=== PATIENT | male | born 1995 | race Caucasian/White ===

== ENCOUNTER 2018-04-02 22:26 | Emergency (ER) | payer OTHER ==
[2018-04-02 22:36] VITALS: BP 148/89
--- NOTE | 2018-04-02 22:42 | ER Report ---
History and Physical Time Seen By MD: 22:43 Hx. of Stated Complaint: PATIENT STATES THAT HE WAS ON HIS WAY BACK TO [place] WHEN HE STARTED HAVING ABD. PAIN AND HEART BURN THEN EXPERIENCED A "POP" IN HIS ABD. AND THEN STATED "FEELS LIKE THE FEELING OF LOSS OF BLOOD"; THEN PATIENT STATED HE PULLED TO THE SIDE OF THE ROAD AND "BLACKED OUT" FOR A FEW SECONDS AND THEN MADE IT TO THE HOSPITAL; PATIENT STATED THAT HE FEELS BETTER NOW BUT STILL HAS SOME RIGHT SIDED ABD. PAIN HPI/ROS CHIEF COMPLAINT: abdominal pain HISTORY OF PRESENT ILLNESS: This is a 22 year old male. He is on the road for the last 36 hours traveling from [place] to [place]. He has been having abdominal pain for the last 24 hours. This is in the right lower abdomen. He said that it worsened tonight. He felt a "popping" sensation in his abdomen, pulled off to the side of the road and then felt like he blacked out for a few seconds. He drove on and stopped here in [place] to get checked out. He feels a little better now, but still with pain in right lower abdomen. He has had some nausea, but no vomiting. Denies problems with urination. Last bowel movement was Friday morning. Normally has BM every 2-3 days. No diarrhea or constipation. Has normal urination. No flank pain. No dysuria. No history of surgeries other than hernia surgery as a child. No pain in testes/groin. Reviewed Nurses Notes: Yes Constitutional Vital Sign - Last 24 Hours 04/02/18 22:36 Temp 98.4 Pulse 94 Resp 20 B/P (MAP) 148/89 Pulse Ox 94 O2 Delivery Room Air Intake and Output 04/02/18 04/02/18 04/03/18 14:58 22:58 06:58 Intake Total 1000 ml Balance 1000 ml Physical Exam General Appearance: The patient is alert. No acute distress. Eyes: Pupils are equal, round. No pallor, injection or icterus. ENT: Mucous membranes are moist. Neck: Supple and non tender. No lymphadenopathy. Respiratory: Lungs are clear to auscultation. Cardiovascular: Regular rate and rhythm. No murmurs, gallops or rubs. Gastrointestinal: Abdomen is tender in right lower abdomen with guarding, but no rebound. Nondistended. No masses or organomegaly. Normal active bowel sounds. No costovertebral angle tenderness with percussion. Neurological: Alert and oriented x3. Skin: Warm and dry. No rashes. Musculoskeletal: No tenderness in palpation of the back/spine. DIFFERENTIAL DIAGNOSIS: After history and physical exam, differential diagnosis was considered for abdominal pain including but not limited to appendicitis, cholecystitis, gastritis and urinary tract infection. Medical Decision Making Data Points Result Diagram: 04/02/18230104/02/18 230 Laboratory Hematology Test 04/02/18 22:33 04/02/18 23:02 Urine Color Yellow Urine Clarity Cloudy Urine pH 7.0 pH (4.8-9.5) Urine Specific [place] 1.016 Urine Protein Negative mg/dL (NEGATIVE) Urine Glucose (UA) Negative mg/dL (NEGATIVE) Urine Ketones Trace mg/dL (NEGATIVE) Urine Blood Negative (NEGATIVE) Urine Nitrite Negative (NEGATIVE) Urine Bilirubin Negative (NEGATIVE) Urine Urobilinogen 2.0 mg/dL (0.2-1.9) Urine Leukocyte Esterase Negative (NEGATIVE) Urine RBC <1 /HPF (0-2/HPF) Urine WBC 2 /HPF (0-5/HPF) Urine Squamous Epithelial Cells None /LPF (</=FEW) Urine Amorphous Crystals Few /HPF Urine Bacteria Few /HPF (NONE-FEW) Urine Mucus Few /HPF (NONE-FEW) Red Blood Count 5.58 M/uL (4.00-5.60) Mean Corpuscular Volume 91.4 fL (80.0-96.0) Mean Corpuscular Hemoglobin 32.7 pg (26.0-33.0) Mean Corpuscular Hemoglobin Concent 35.7 g/dL (32.0-36.0) Red Cell Distribution Width 13.3 % (11.5-14.5) Mean Platelet Volume 7.9 fL (7.2-11.1) Neutrophils (%) (Auto) 68.0 % (39.4-72.5) Lymphocytes (%) (Auto) 17.7 % (17.6-49.6) Monocytes (%) (Auto) 9.8 % (4.1-12.4) Eosinophils (%) (Auto) 2.8 % (0.4-6.7) Basophils (%) (Auto) 1.7 % (0.3-1.4) Nucleated RBC Relative Count (auto) 0.0 /100WBC Neutrophils # (Auto) 6.9 K/uL (2.0-7.4) Lymphocytes # (Auto) 1.8 K/uL (1.3-3.6) Monocytes # (Auto) 1.0 K/uL (0.3-1.0) Eosinophils # (Auto) 0.3 K/uL (0.0-0.5) Basophils # (Auto) 0.2 K/uL (0.0-0.1) Nucleated RBC Absolute Count (auto) 0.01 K/uL Sodium Level 138 mmol/L (137-145) Potassium Level 3.6 mmol/L (3.5-5.0) Chloride Level 101 mmol/L (98-107) Carbon Dioxide Level 26 mmol/L (22-30) Blood Urea Nitrogen 12 mg/dl (9-21) Creatinine 0.90 mg/dl (0.66-1.25) Glomerular Filtration Rate Calc > 60.0 Random Glucose 107 mg/dl (75-110) Calcium Level 10.4 mg/dl (8.4-10.2) Total Bilirubin 0.8 mg/dl (0.2-1.3) Aspartate Amino Transf (AST/SGOT) 27 U/L (0-35) Alanine Aminotransferase (ALT/SGPT) 34 U/L (0-56) Alkaline Phosphatase 52 U/L (0-126) Total Protein 7.4 g/dl (6.3-8.2) Albumin 4.3 g/dl (3.5-5.0) Amylase Level 78 U/L (0-110) Lipase 84 U/L (23-300) Chemistry Test 04/02/18 22:33 04/02/18 23:02 Urine Color Yellow Urine Clarity Cloudy Urine pH 7.0 pH (4.8-9.5) Urine Specific [place] 1.016 Urine Protein Negative mg/dL (NEGATIVE) Urine Glucose (UA) Negative mg/dL (NEGATIVE) Urine Ketones Trace mg/dL (NEGATIVE) Urine Blood Negative (NEGATIVE) Urine Nitrite Negative (NEGATIVE) Urine Bilirubin Negative (NEGATIVE) Urine Urobilinogen 2.0 mg/dL (0.2-1.9) Urine Leukocyte Esterase Negative (NEGATIVE) Urine RBC <1 /HPF (0-2/HPF) Urine WBC 2 /HPF (0-5/HPF) Urine Squamous Epithelial Cells None /LPF (</=FEW) Urine Amorphous Crystals Few /HPF Urine Bacteria Few /HPF (NONE-FEW) Urine Mucus Few /HPF (NONE-FEW) White Blood Count 10.2 k/uL (4.5-11.0) Red Blood Count 5.58 M/uL (4.00-5.60) Hemoglobin 18.2 g/dL (14.0-18.0) Hematocrit 51.0 % (42.0-52.0) Mean Corpuscular Volume 91.4 fL (80.0-96.0) Mean Corpuscular Hemoglobin 32.7 pg (26.0-33.0) Mean Corpuscular Hemoglobin Concent 35.7 g/dL (32.0-36.0) Red Cell Distribution Width 13.3 % (11.5-14.5) Platelet Count 352 K/uL (150-450) Mean Platelet Volume 7.9 fL (7.2-11.1) Neutrophils (%) (Auto) 68.0 % (39.4-72.5) Lymphocytes (%) (Auto) 17.7 % (17.6-49.6) Monocytes (%) (Auto) 9.8 % (4.1-12.4) Eosinophils (%) (Auto) 2.8 % (0.4-6.7) Basophils (%) (Auto) 1.7 % (0.3-1.4) Nucleated RBC Relative Count (auto) 0.0 /100WBC Neutrophils # (Auto) 6.9 K/uL (2.0-7.4) Lymphocytes # (Auto) 1.8 K/uL (1.3-3.6) Monocytes # (Auto) 1.0 K/uL (0.3-1.0) Eosinophils # (Auto) 0.3 K/uL (0.0-0.5) Basophils # (Auto) 0.2 K/uL (0.0-0.1) Nucleated RBC Absolute Count (auto) 0.01 K/uL Glomerular Filtration Rate Calc > 60.0 Calcium Level 10.4 mg/dl (8.4-10.2) Total Bilirubin 0.8 mg/dl (0.2-1.3) Aspartate Amino Transf (AST/SGOT) 27 U/L (0-35) Alanine Aminotransferase (ALT/SGPT) 34 U/L (0-56) Alkaline Phosphatase 52 U/L (0-126) Total Protein 7.4 g/dl (6.3-8.2) Albumin 4.3 g/dl (3.5-5.0) Amylase Level 78 U/L (0-110) Lipase 84 U/L (23-300) Urinalysis Test 04/02/18 22:33 Urine Color Yellow Urine Clarity Cloudy Urine pH 7.0 pH (4.8-9.5) Urine Specific [place] 1.016 Urine Protein Negative mg/dL (NEGATIVE) Urine Glucose (UA) Negative mg/dL (NEGATIVE) Urine Ketones Trace mg/dL (NEGATIVE) Urine Blood Negative (NEGATIVE) Urine Nitrite Negative (NEGATIVE) Urine Bilirubin Negative (NEGATIVE) Urine Urobilinogen 2.0 mg/dL (0.2-1.9) Urine Leukocyte Esterase Negative (NEGATIVE) Urine RBC <1 /HPF (0-2/HPF) Urine WBC 2 /HPF (0-5/HPF) Urine Squamous Epithelial Cells None /LPF (</=FEW) Urine Amorphous Crystals Few /HPF Urine Bacteria Few /HPF (NONE-FEW) Urine Mucus Few /HPF (NONE-FEW) EKG/Imaging Imaging COMPUTED TOMOGRAPHY ABDOMEN AND PELVIS WITH INTRAVENOUS CONTRAST DATE OF EXAM: 04/02/2018 10:57 PM INDICATION: Right lower abdominal pain. COMPARISON: None. TECHNIQUE: Contrast enhanced abdomen and pelvis CT performed during the injecti on of 75 ml of Isovue 370. Sagittal and coronal reconstructions were performed. One of the following dose optimization techniques was utilized in the performance of this exam: Automated exposure control; adjustment of the mA and/or kV according to the patient's size; or use of an iterative recons truction technique. Specific details can be referenced in the facility's radiology CT exam operational policy. FINDINGS: Lung bases: Clear. Liver and hepatic vasculature: Normal. Gallbladder and bile ducts: Normal. Spleen: Normal. Splenule posteriorly. Pancreas: Normal. Adrenals: Normal. Kidneys, ureters and bladder: Normal. Retroperitoneum and aorta: Normal. GI tract, mesentery and peritoneum: No evidence of obstruction. No pneumatosis, pneumoperitoneum or free fluid. The appendix is normal. Moderate amount of stool in the colon. Prostate and seminal vesicles: Normal. Bones and soft tissues: No acute abnormality or suspicious lesion. IMPRESSION: 1. Normal appendix. 2. Moderate amount of stool in the colon may indicate constipation. Report Dictated By: Andrew Escobar MD at 04/02/2018 11:42 PM ED Course/Re-evaluation Clinical Indication for ER IV: Hydration, IV Access ED Course Imaging and labs negative. Reviewed this with the patient. Still with mild pain, recommended Ibuprofen or Tylenol. Recommended seeing how he does after having a bowel movement since there was a significant amount of stool in the colon. He will see how he does, and will return or stop if worsening symptoms, especially if worsening pain, nausea/vomiting, fevers/chills. Decision to Disposition Date: Apr 03, 2018 Decision to Disposition Time: 00:54 Depart Departure Latest Vital Signs Vital Signs Date Time Temp Pulse Resp B/P (MAP) Pulse Ox O2 Delivery O2 Flow Rate FiO2 04/02/18 22:36 98.4 94 20 148/89 94 Room Air Impression: Primary Impression: Abdominal pain Additional Impression: Constipation Condition: Improved Disposition: HOME OR SELF-CARE Patient Instructions: Acute Abdominal Pain (ED), Constipation (ED) Additional Instructions: No abnormality noted on evaluation tonight. Recommend using Tylenol or Ibuprofen as needed for pain. Increase fluid intake. Would recommend seeing if having a bowel movement changes the pain. If worsening, or developing fevers/chills, or severe nausea and vomiting, then return or stop at another facility for re-evaluation. Problem Qualifiers Primary Impression: Abdominal pain Abdominal location: right lower quadrant Qualified Codes: R10.31 - Right lower quadrant pain Additional Impression: Constipation Constipation type: unspecified constipation type Qualified Codes: K59.00 - Constipation, unspecified LUCERO MONTERO MD Apr 02, 2018 22:42
[2018-04-02] MEDS ORDERED: NS(*) 0.9% 1000 ML BAG 1,000 ML IV ONE (22:57)
[2018-04-02] MEDS ORDERED: IOPAMIDOL 76% 75 ML INFUS BTL 75 ML ONE (23:09)
[2018-04-02 23:16] LABS: PLATELET COUNT, AUTOMATED 352 K/uL (150-450)
--- NOTE | 2018-04-02 23:55 | RADIOLOGY IMAGING REPORT ---
FACILITY: [facility] - [place] PATIENT NAME: Juma Brennre : 1995 MR: [id number] V: [id number] EXAM DATE: [id number] ORDERING PHYSICIAN: LUCERO MONTERO TECHNOLOGIST: Location: [facility] [place] Patient: Juma Brenner : 1995 Visit/Account:[id number] Date of Sevice: 04/02/2018 COMPUTED TOMOGRAPHY ABDOMEN AND PELVIS WITH INTRAVENOUS CONTRAST DATE OF EXAM: 04/02/2018 10:57 PM INDICATION: Right lower abdominal pain. COMPARISON: None. TECHNIQUE: Contrast enhanced abdomen and pelvis CT performed during the injection of 75 ml of Isovue 370. Sagittal and coronal reconstructions were performed. One of the following dose optimization te chniques was utilized in the performance of this exam: Automated exposure control; adjustment of the mA and/or kV according to the patient's size; or use of an iterative reconstruction technique. [facility] details can be referenced in the facility's radiology CT exam operational policy. FINDINGS: Lung bases: Clear. Liver and hepatic vasculature: Normal. Gallbladder and bile ducts: Normal. Spleen: Normal. Splenule posteriorly. Pancreas: Normal. Adrenals: Normal. Kidneys, ureters and bladder: Normal. Retroperitoneum and aorta: Normal. GI tract, mesentery and peritoneum: No evidence of obstruction. No pneumatosis, pneumoperitoneum or free fluid. The appendix is normal. Moderate amount of stool in the colon. Prostate and seminal vesicles: Normal. Bones and soft tissues: No acute abnormality or suspicious lesion. IMPRESSION: 1. Normal appendix. 2. Moderate amount of stool in the colon may indicate constipation. Report Dictated By: Andrew Escobar MD at 04/02/2018 11:42 PM Report E-Signed By: Andrew Escobar MD at 04/02/2018 11:51 PM WSN:[id number]
== END 2018-04-03 01:13 | disposition home or self-care (01) ==
LOC: ER 22:44
DX: R10.31 Right lower quadrant pain (principal); K59.00 Constipation, unspecified
CPT/HCPCS: 74177; 81001; 82150; 83690; 85025; 96360; 99284; J7030; Q9967; 82040; 82247; 82310; 82374; 82435; 82565; 82947; 84075; 84132; 84155; 84295; 84450; 84460; 84520